=== PATIENT | male | born 1980 | race Caucasian/White ===

== ENCOUNTER 2021-03-16 22:34 | Emergency (ER) | payer SELFPAY ==
[~2021-03-16] VITALS: Ht 175.3 cm; Wt 136.1 kg
[2021-03-16 22:34] VITALS: BP 151/82
--- NOTE | 2021-03-16 22:34 | NUR ---
PT ANDRES ALS. TAKEN TO BED 9
--- NOTE | 2021-03-16 22:34 | NUR ---
Ivan bone in [facility] - 03/16/21 at 2238 by ARCADIO BIBA TAKEN TO BED #9
--- NOTE | 2021-03-16 22:45 | NUR ---
ERMD AT BEDSIDE.
--- NOTE | 2021-03-16 22:45 | NUR ---
DR. ROBBINS AT BEDSIDE FOR MSE
--- NOTE | 2021-03-16 22:47 | NUR ---
BIBA FROM HOME S/P HEROIN OVERDOSE. GIVEN TOTAL OF 4MG [facility]. NO NOTED DISTRESS AT THIS TIME. GCS 15. RESPIRATIONS EVEN AND UNLABORED. PT SPEAKING IN COMPLETE SENTENCES. PT DENIES PAIN. MEDHX: RT KNEE AND LT FOOT SURGERY ALLERGIES: NKA
--- NOTE | 2021-03-16 22:54 | NUR ---
PROVIDED PT JUICE PER REQUEST, ERMD APPROVAL.
--- NOTE | 2021-03-16 23:20 | NUR ---
RETURNED PT HIS ID AND INSURANCE CARD.
--- NOTE | 2021-03-16 23:40 | NUR ---
PATIENT ELOPED. ERMD AWARE.
== END 2021-03-16 23:40 | disposition left against medical advice (07) ==
LOC: MED 22:34
DX: T40.1X1A Poisoning by heroin, accidental (unintentional), initial encounter (principal); Y92.89 Other specified places as the place of occurrence of the external cause
CPT/HCPCS: 99283